=== PATIENT | female | born 1955 | race Caucasian/White ===

== ENCOUNTER → 2019-04-18 13:57 | Outpatient (CLI) | payer MEDICARE, SELFPAY ==
[2019-04-18 14:53] LABS: Hemoglobin A1C% w Est Avg Glu 6.7 % (4.0-6.0)
[2019-04-18 15:33] LABS: Cholesterol 174 mg/dL (140-199); HDL Cholesterol 66 mg/dL (40-60); LDL Cholesterol Calculated 80 mg/dL (<100); Triglycerides 140 mg/dL (35-150)
[2019-04-18 15:51] LABS: Free T4, Direct Thyroxine 1.36 ng/dL (0.78-2.19)
[2019-04-18 16:01] LABS: Creatinine Urine Random 79.1 mg/dL
[2019-04-18 16:05] LABS: Microalbumi Creatinin Ratio Ur 7.5 ug/mg CR (<30); Microalbumin Urine Random < 0.6 mg/dL (0-1.6)
== END ==
PROVIDERS: Visit Provider Student in an Organized Health Care Education/Training Program
DX: E03.9 Hypothyroidism, unspecified (principal); E11.9 Type 2 diabetes mellitus without complications; E78.2 Mixed hyperlipidemia
CPT/HCPCS: 36415; 80061; 82043; 82570; 83036; 84439; 84443

== ENCOUNTER → 2019-06-23 14:28 | Outpatient (CLI) | payer MEDICARE, SELFPAY ==
--- NOTE | 2019-06-23 14:29 | DI.MG.S_ITS ---
BILATERAL DIGITAL SCREENING MAMMOGRAM 3D/2D WITH CAD: 06/23/2019 CLINICAL: Routine screening. Comparison is made to exams dated: 07/19/2015 mammogram, 02/10/2014 mammogram - [facility], 11/15/2012 mammogram, and 11/15/2011 mammogram - [facility]. There are scattered fibroglandular elements in both breasts. Current study was also evaluated with a Computer Aided Detection (CAD) system. No significant masses, calcifications, or other findings are seen in either breast. There has been no significant interval change. IMPRESSION: NEGATIVE There is no mammographic evidence of malignancy. A 1 year screening mammogram is recommended. This exam was interpreted at Station ID: [id number]. NOTE: For mammograms, a report in lay terms will be sent to the patient. Approximately 15% of breast malignancies will not be visualized mammographically. In the management of a palpable breast mass, a negative mammogram must not discourage biopsy of a clinically suspicious lesion. Electronically Signed By: Shane [email or web address]/[email or web address]:06/23/2019 17:33:49 letter sent: Normal Exam ACR BI-RADS Category 1: Negative [id number]
== END ==
PROVIDERS: PCP Student in an Organized Health Care Education/Training Program; Visit Provider Student in an Organized Health Care Education/Training Program
DX: Z12.31 Encounter for screening mammogram for malignant neoplasm of breast (principal); Z13.820 Encounter for screening for osteoporosis; Z78.0 Asymptomatic menopausal state; E07.9 Disorder of thyroid, unspecified; E11.9 Type 2 diabetes mellitus without complications; Z91.89 Other specified personal risk factors, not elsewhere classified; Z87.891 Personal history of nicotine dependence
CPT/HCPCS: 77063; 77067; 77080

== ENCOUNTER → 2019-10-11 10:49 | Outpatient (CLI) | payer MEDICARE, SELFPAY ==
[2019-10-11 12:16] LABS: Hemoglobin A1C% w Est Avg Glu 7.3 % (4.0-6.0)
[2019-10-11 12:23] LABS: BUN Creatinine Ratio 28.8 (6-22); Blood Urea Nitrogen 21 mg/dL (7-17); Calcium 10.1 mg/dL (8.4-10.2); Carbon Dioxide 26 mmol/L (22-32); Chloride 105 mmol/L (98-107); Estimated Glomerular Filt Rate > 60.0 mL/min (>60); Glucose 149 mg/dL (80-110); HEMOLYSIS < 15 (0-50); Potassium 4.3 mmol/L (3.4-5.1); Sodium 139 mmol/L (137-145)
== END ==
PROVIDERS: PCP Student in an Organized Health Care Education/Training Program; Referring Provider Student in an Organized Health Care Education/Training Program; Visit Provider Student in an Organized Health Care Education/Training Program
DX: E11.9 Type 2 diabetes mellitus without complications (principal); I10 Essential (primary) hypertension
CPT/HCPCS: 36415; 80048; 83036

== ENCOUNTER → 2020-01-19 11:58 | Outpatient (CLI) | payer MEDICARE, SELFPAY ==
[2020-01-19 13:39] LABS: Hemoglobin A1C% w Est Avg Glu 6.7 % (4.0-6.0)
== END ==
PROVIDERS: PCP Student in an Organized Health Care Education/Training Program; Referring Provider Student in an Organized Health Care Education/Training Program; Visit Provider Student in an Organized Health Care Education/Training Program
DX: E11.9 Type 2 diabetes mellitus without complications (principal)
CPT/HCPCS: 36415; 83036

== ENCOUNTER → 2020-05-05 16:20 | Outpatient (CLI) | payer MEDICARE, SELFPAY ==
[2020-05-05 17:25] LABS: Hemoglobin A1C% w Est Avg Glu 7.3 % (4.0-6.0)
[2020-05-05 17:37] LABS: Creatinine Urine Random 119.9 mg/dL
[2020-05-05 17:42] LABS: Microalbumi Creatinin Ratio Ur 5.8 ug/mg CR (<30); Microalbumin Urine Random 0.7 mg/dL (0-1.6)
== END ==
PROVIDERS: PCP Student in an Organized Health Care Education/Training Program; Referring Provider Student in an Organized Health Care Education/Training Program; Visit Provider Student in an Organized Health Care Education/Training Program
DX: E11.9 Type 2 diabetes mellitus without complications (principal)
CPT/HCPCS: 36415; 82043; 82570; 83036

== ENCOUNTER → 2023-10-22 08:59 | Outpatient (CLI) | payer MEDICARE, SELFPAY ==
[2023-10-22 10:21] LABS: Hemoglobin A1C% w Est Avg Glu 5.8 % (4.0-6.0)
[2023-10-22 10:27] LABS: Add Manual Diff / Slide Review NO; Basophils Absolute Auto 0 /uL (0-100); Basophils Percent Auto 0.5 % (0-2); Eosinophils Absolute Auto 100 /uL (0-450); Eosinophils Percent Auto 1.3 % (2-4); Hematocrit 32.9 % (36-46); Hemoglobin 10.8 g/dL (12.0-16.0); Lymphocytes Absolute Auto 2400 /uL (1100-4500); Lymphocytes Percent Auto 27.3 % (25-40); Mean Corpuscular HGB Conc 32.8 % (30-36); Mean Corpuscular Hemoglobin 25.9 PG (26-34); Mean Corpuscular Volume 79.1 fL (80-100); Monocytes Absolute Auto 400 /uL (0-900); Monocytes Percent Auto 4.7 % (3-14); Neutrophils Absolute Auto 5800 /uL (1500-7000); Neutrophils Percent Auto 66.2 % (50-75); Platelet Count 323 X10^3/uL (150-400); Red Blood Cell Count 4.16 X10^6/uL (4.0-5.2); Red Cell Distribution Width 16.7 % (11.6-14.8); White Blood Cell Count 8.7 X10^3/uL (4.5-11.0)
[2023-10-22 10:44] LABS: Alanine Aminotransferase 19 IU/L (<35); Albumin 4.1 g/dL (3.5-5.0); Alkaline Phosphatase 74 U/L (38-126); Aspartate Aminotransferase 25 IU/L (14-36); BUN Creatinine Ratio 18.4 (6-22); Bilirubin Total 0.7 mg/dL (0.2-1.3); Blood Urea Nitrogen 14 mg/dL (7-17); Calcium 9.9 mg/dL (8.4-10.2); Carbon Dioxide 27 mmol/L (22-32); Chloride 105 mmol/L (98-107); Cholesterol 154 mg/dL (140-199); Estimated Glomerular Filt Rate > 60 mL/min (>60); Globulin 2.1 g/dL (1.7-4.1); Glucose 100 mg/dL (80-110); HDL Cholesterol 68 mg/dL (40-60); HEMOLYSIS < 15 (0-50); LDL Cholesterol Calculated 68 mg/dL (<100); Potassium 5.1 mmol/L (3.4-5.1); Sodium 137 mmol/L (137-145); Total Protein 6.2 g/dL (6.3-8.2); Triglycerides 88 mg/dL (35-150)
[2023-10-22 10:45] LABS: Creatinine Urine Random 277.39 mg/dL
[2023-10-22 10:46] LABS: HEMOLYSIS < 15 (0-50); Iron 42 ug/dL (37-170)
[2023-10-22 10:52] LABS: Microalbumin Urine Random 1.4 mg/dL (0-1.6)
[2023-10-22 10:57] LABS: Percent Iron Saturation 11 % (15-50); Total Iron Binding Capacity 373 ug/dL (265-497); Transferrin 285 mg/dL (206-381)
[2023-10-22 11:17] LABS: Ferritin 6 ng/mL (11-264)
[2023-10-22 11:18] LABS: TSH w/ Reflex to FT4 0.44 uIU/mL (0.47-4.68)
[2023-10-22 12:01] LABS: Free T4, Direct Thyroxine 1.29 ng/dL (0.78-2.19)
== END ==
PROVIDERS: PCP Student in an Organized Health Care Education/Training Program; Referring Provider Student in an Organized Health Care Education/Training Program; Visit Provider Student in an Organized Health Care Education/Training Program
DX: I10 Essential (primary) hypertension (principal); E11.9 Type 2 diabetes mellitus without complications; E03.9 Hypothyroidism, unspecified; E61.1 Iron deficiency; E11.69 Type 2 diabetes mellitus with other specified complication; E78.2 Mixed hyperlipidemia
CPT/HCPCS: 36415; 80053; 80061; 82043; 82570; 82728; 83036; 83540; 83550; 84439; 84443; 85025

== ENCOUNTER → 2024-01-15 10:46 | Outpatient (CLI) | payer MEDICARE, SELFPAY ==
[2024-01-15 11:52] LABS: Add Manual Diff / Slide Review NO; Basophils Absolute Auto 0 /uL (0-100); Basophils Percent Auto 0.5 % (0-2); Eosinophils Absolute Auto 100 /uL (0-450); Eosinophils Percent Auto 1.3 % (2-4); Hematocrit 33.6 % (36-46); Lymphocytes Absolute Auto 3200 /uL (1100-4500); Lymphocytes Percent Auto 34.6 % (25-40); Mean Corpuscular HGB Conc 32.7 % (30-36); Mean Corpuscular Hemoglobin 26.4 PG (26-34); Mean Corpuscular Volume 80.6 fL (80-100); Monocytes Absolute Auto 500 /uL (0-900); Monocytes Percent Auto 5.4 % (3-14); Neutrophils Absolute Auto 5400 /uL (1500-7000); Neutrophils Percent Auto 58.2 % (50-75); Platelet Count 313 X10^3/uL (150-400); Red Blood Cell Count 4.17 X10^6/uL (4.0-5.2); Red Cell Distribution Width 15.9 % (11.6-14.8); White Blood Cell Count 9.2 X10^3/uL (4.5-11.0)
[2024-01-15 12:13] LABS: HEMOLYSIS < 15 (0-50)
[2024-01-15 12:16] LABS: Iron 28 ug/dL (37-170)
[2024-01-15 12:45] LABS: TSH w/ Reflex to FT4 0.54 uIU/mL (0.47-4.68)
[2024-01-15 12:47] LABS: Ferritin 5 ng/mL (11-264)
[2024-01-15 13:07] LABS: Transferrin 309 mg/dL (206-381)
== END ==
PROVIDERS: PCP Student in an Organized Health Care Education/Training Program; Referring Provider Student in an Organized Health Care Education/Training Program; Visit Provider Student in an Organized Health Care Education/Training Program
DX: D64.9 Anemia, unspecified (principal); E03.9 Hypothyroidism, unspecified
CPT/HCPCS: 36415; 82728; 83540; 83550; 84443; 85025

== ENCOUNTER → 2024-02-14 10:47 | Outpatient (CLI) | payer MEDICARE, SELFPAY ==
[2024-02-14 11:36] LABS: Hemoglobin A1C% w Est Avg Glu 5.9 % (4.0-6.0)
== END ==
PROVIDERS: PCP Student in an Organized Health Care Education/Training Program; Referring Provider Student in an Organized Health Care Education/Training Program; Visit Provider Student in an Organized Health Care Education/Training Program
DX: E11.9 Type 2 diabetes mellitus without complications (principal)
CPT/HCPCS: 36415; 83036

== ENCOUNTER → 2024-05-12 09:35 | Outpatient (CLI) | payer MEDICARE, SELFPAY ==
[2024-05-12 10:31] LABS: Add Manual Diff / Slide Review NO; Basophils Absolute Auto 0 /uL (0-100); Basophils Percent Auto 0.4 % (0-2); Eosinophils Absolute Auto 100 /uL (0-450); Eosinophils Percent Auto 1.3 % (2-4); Hematocrit 41.6 % (36-46); Hemoglobin 13.8 g/dL (12.0-16.0); Lymphocytes Absolute Auto 2900 /uL (1100-4500); Lymphocytes Percent Auto 35.7 % (25-40); Mean Corpuscular HGB Conc 33.2 % (30-36); Mean Corpuscular Hemoglobin 29.8 PG (26-34); Mean Corpuscular Volume 89.7 fL (80-100); Monocytes Absolute Auto 500 /uL (0-900); Monocytes Percent Auto 5.5 % (3-14); Neutrophils Absolute Auto 4700 /uL (1500-7000); Neutrophils Percent Auto 57.1 % (50-75); Platelet Count 285 X10^3/uL (150-400); Red Blood Cell Count 4.64 X10^6/uL (4.0-5.2); Red Cell Distribution Width 17.8 % (11.6-14.8); White Blood Cell Count 8.2 X10^3/uL (4.5-11.0)
[2024-05-12 10:43] LABS: Hemoglobin A1C% w Est Avg Glu 5.9 % (4.0-6.0)
[2024-05-12 11:02] LABS: HEMOLYSIS < 15 (0-50); Iron 93 ug/dL (37-170)
[2024-05-12 11:07] LABS: Alanine Aminotransferase 26 IU/L (<35); Albumin 4.3 g/dL (3.5-5.0); Albumin Globulin Ratio 1.7 (1.0-2.8); Alkaline Phosphatase 76 U/L (38-126); Aspartate Aminotransferase 27 IU/L (14-36); BUN Creatinine Ratio 21.6 (6-22); Bilirubin Total 0.7 mg/dL (0.2-1.3); Blood Urea Nitrogen 19 mg/dL (7-17); Calcium 10.6 mg/dL (8.4-10.2); Carbon Dioxide 28 mmol/L (22-32); Chloride 103 mmol/L (98-107); Cholesterol 173 mg/dL (140-199); Estimated Glomerular Filt Rate > 60 mL/min (>60); Globulin 2.6 g/dL (1.7-4.1); Glucose 117 mg/dL (80-110); HDL Cholesterol 78 mg/dL (40-60); HEMOLYSIS < 15 (0-50); LDL Cholesterol Calculated 78 mg/dL (<100); Sodium 135 mmol/L (137-145); Total Protein 6.9 g/dL (6.3-8.2); Triglycerides 84 mg/dL (35-150)
[2024-05-12 11:12] LABS: Percent Iron Saturation 39 % (15-50); Total Iron Binding Capacity 240 ug/dL (265-497); Transferrin 229 mg/dL (206-381)
[2024-05-12 11:12] LABS: Creatinine Urine Random 192.96 mg/dL
[2024-05-12 11:18] LABS: Microalbumin Urine Random < 0.6 mg/dL (0-1.6)
[2024-05-12 11:19] LABS: Potassium 5.4 mmol/L (3.4-5.1)
[2024-05-12 11:41] LABS: Ferritin 185 ng/mL (11-264)
== END ==
LOC: LAB 09:36
PROVIDERS: PCP Student in an Organized Health Care Education/Training Program; Referring Provider Student in an Organized Health Care Education/Training Program; Visit Provider Student in an Organized Health Care Education/Training Program
DX: D64.9 Anemia, unspecified (principal); E11.69 Type 2 diabetes mellitus with other specified complication; I10 Essential (primary) hypertension; E78.2 Mixed hyperlipidemia
CPT/HCPCS: 36415; 80053; 80061; 82043; 82570; 82728; 83036; 83540; 83550; 85025

== ENCOUNTER → 2024-05-20 10:33 | Outpatient (CLI) | payer MEDICARE, SELFPAY ==
[2024-05-20 12:52] LABS: Alanine Aminotransferase 29 IU/L (<35); Albumin 4.3 g/dL (3.5-5.0); Alkaline Phosphatase 77 U/L (38-126); Aspartate Aminotransferase 32 IU/L (14-36); BUN Creatinine Ratio 22.1 (6-22); Bilirubin Total 0.6 mg/dL (0.2-1.3); Blood Urea Nitrogen 17 mg/dL (7-17); Calcium 10.5 mg/dL (8.4-10.2); Carbon Dioxide 28 mmol/L (22-32); Chloride 103 mmol/L (98-107); Estimated Glomerular Filt Rate > 60 mL/min (>60); Globulin 2.2 g/dL (1.7-4.1); Glucose 112 mg/dL (80-110); HEMOLYSIS < 15 (0-50); Potassium 5.4 mmol/L (3.4-5.1); Sodium 138 mmol/L (137-145); Total Protein 6.5 g/dL (6.3-8.2)
[2024-05-22 12:36] LABS: Calcium 10.3 mg/dL (8.7-10.3); Parathyroid Hormone, Intact 39 pg/mL (15-65)
== END ==
PROVIDERS: PCP Student in an Organized Health Care Education/Training Program; Referring Provider Student in an Organized Health Care Education/Training Program; Visit Provider Student in an Organized Health Care Education/Training Program
DX: E03.9 Hypothyroidism, unspecified (principal); E34.9 Endocrine disorder, unspecified; E87.5 Hyperkalemia; Z79.899 Other long term (current) drug therapy
CPT/HCPCS: 36415; 80053; 82310; 83970

== ENCOUNTER → 2024-07-03 10:12 | Outpatient (CLI) | payer MEDICARE, SELFPAY ==
--- NOTE | 2024-07-03 10:15 | DI.ECHO.S_ITS ---
[facility]+ [facility] : : [address] : : [place] : : [id number] : : Phone: [phone] Echocardiogram Report + + :Name: ALOK GIBBONS Study Date: 07/03/2024 Height: 63 in : :[facility] ReadingLocation: Weight: 185 lb : : Gender: Female BSA: 1.9 m2 : :: 1955 Age: 69 yrs BP: 127/81 mmHg: :Reason For Study: ESSENTIAL HYPERTENSION : :Ordering Physician: MAHAD, : :NEGRITO Performed By: Timi Villatoro : :Referring: NEGRITO TOBIN : + + Interpretation Summary The ejection fraction is estimated to be 50-55%. Diastolic parameters suggest probable normal left ventricular diastolic function and normal filling pressures. Right ventricular systolic function is borderline reduced. No significant valvular abnormalities. Pulmonary artery pressures cannot be estimated because of the lack of a measurable TR jet velocity but the IVC suggests a CVP of around 3 mmHg. Procedure: A two-dimensional transthoracic echocardiogram with color flow and Doppler was performed. The study quality was technically good. There is no prior echocardiogram noted for this patient. The patient was in normal sinus rhythm during the exam. Left Ventricle: The left ventricle is normal in size. Left ventricular wall thickness is mildly increased. There is no ventricular septal defect visualized. The ejection fraction is estimated to be 50-55%. There are no focal wall motion abnormalities. Diastolic parameters suggest probable normal left ventricular diastolic function and normal filling pressures. Right Ventricle: The right ventricle is normal size. Right ventricular systolic function is borderline reduced. Atria: The left atrial size is normal. Right atrial size is normal. There is no Doppler evidence for an interatrial shunt. Mitral Valve: The mitral valve leaflets appear normal. There is no evidence of stenosis, fluttering, or prolapse. There is moderate mitral annular calcification. There is no mitral regurgitation noted. Aortic Valve: The aortic valve is trileaflet. The aortic valve is slightly calcified. The aortic valve opens well. There is no aortic valve stenosis. There is trace aortic regurgitation. Tricuspid Valve: The tricuspid valve is normal in structure and function. There is trace tricuspid regurgitation. Pulmonary artery pressures cannot be estimated because of the lack of a measurable TR jet velocity but the IVC suggests a CVP of around 3 mmHg. Pulmonic Valve: The pulmonic valve leaflets are thin and pliable; valve motion is normal. There is trace pulmonic regurgitation. Great Vessels: The aortic root is normal size. The dimensions of the ascending aorta are normal. The pulmonary artery is normal size. The IVC is of normal diameter and collapses greater than 50% with a sniff. This suggests a low right atrial pressure of 3 mm Hg. Pericardium/ Pleura There is no pericardial effusion. There is no pleural effusion. MMode/2D Measurements & Calculations LVIDd: 4.1 cm LVOT diam: 2.2 cm LVIDs: 2.7 cm Ao root diam: 3.2 cm FS: 35.0 % asc Aorta Diam: 3.4 cm EPSS: 0.89 cm Ao Arch Diam (Prox Trans): 1.9 cm IVSd: 1.3 cm LVPWd: 1.0 cm LV sy. diameter/BSA (cm/m^2): 2.2 LV sys. diameter/BSA (cm/m^2): 1.4 LA A2 area: 15.0 cm2 RA long axis: 4.0 cm LA A4 area: 19.0 cm2 RA area: 11.2 cm2 LA length (vol): 5.4 cm RA vol: 26.3 ml LA vol: 45.1 ml RA : 14.1 ml/m2 LA vol index: 24.1 ml/m2 IVC diam: 1.4 cm RVD1 (basal): 3.4 cm RVD2 (mid): 2.6 cm TAPSE: 2.3 cm Doppler Measurements & Calculations Ao V2 max: 123.8 cm/sec LVOT Max Han: 76.8 cm/sec Ao V2 mean: 87.0 cm/sec LV V1 max P.4 mmHg Ao max P.1 mmHg LV V1 VTI: 16.9 cm Ao mean P.4 mmHg MOE(I,D): 2.4 cm2 Ao V2 VTI: 26.8 cm MOE(V,D): 2.3 cm2 sev ratio: 0.63 MOE indexed to BSA (cm^2/m^2): 1.3 MV E max han: 57.1 cm/sec TR max han: 214.2 cm/sec MV A max han: 101.6 cm/sec TR max P.3 mmHg MV E/A: 0.56 PA V2 max: 69.5 cm/sec Med Peak E' Han: 4.2 cm/sec PA V2 mean: 47.6 cm/sec E/E' med: 13.6 PA mean P.0 mmHg Lat Peak E' Han: 6.9 cm/sec PA pr(Accel): 24.2 mmHg E/E' lat: 8.3 E/e' average: 11.0 MV dec time: 0.25 sec SV(OT): 63.8 ml Reading Physician:05:42 PM
== END ==
PROVIDERS: PCP Student in an Organized Health Care Education/Training Program; Referring Provider Student in an Organized Health Care Education/Training Program; Visit Provider Student in an Organized Health Care Education/Training Program
DX: I10 Essential (primary) hypertension (principal); I34.81 Nonrheumatic mitral (valve) annulus calcification
CPT/HCPCS: 93306

== ENCOUNTER 2024-07-31 14:05 | Day surgery (SDC) | payer MEDICARE, SELFPAY ==
[2024-07-31 14:30] VITALS: BP 149/72; PULSE 70; RESP 16; TEMP 36.4; O2SAT 70
--- NOTE | 2024-07-31 14:40 | PM.HP.IH.1 ---
History of Present Illness History of Present Illness Date Patient Seen: 07/31/24 Time Patient Seen: 14:40 Chief complaint: [facility] [place] Narrative: Crystal is a 69-year-old woman with a anemia. See the office note from June 30 for details. COUNTS INCLUDE 234 BEDS AT THE [facility] Medical History Acne (~1966) Kidney stones (~2009) GERD (gastroesophageal reflux disease) Type 2 diabetes mellitus (~2008) Morbid obesity Shoulder pain Chicken pox (~1956) Surgical History Anesthesia Empyema (~2008) History of thyroidectomy (~1973) Family History Father History of heart disease Brother History of heart disease Hyperlipidemia Hypertension Grandfather Brain aneurysm Grandmother Lung disease Grandfather History of heart disease Mother Cancer Social History Smoking Status: Former smoker (Quit 20 years ago. ) Tobacco: How many years used: 25 second hand exposure: No alcohol intake: current (Often have a glass of wine or whiskey at night) substance use type: does not use Meds Home Medications and Allergies Home Medications Medication Instructions Recorded Confirmed Type aspirin 81 mg tablet,delayed 81 mg PO DAILY 04/18/19 07/31/24 History release (Adult Low Dose Aspirin) omeprazole 20 mg capsule,delayed 20 mg PO .Every other day 04/18/19 07/31/24 History release 500mg Calcium citrate magnesium 02/05/20 06/30/24 History zinc D3 levothyroxine 112 mcg tablet 100 mcg PO DAILY 10/19/23 07/31/24 History metformin 500 mg tablet 1,000 mg PO BID 10/19/23 07/31/24 History atorvastatin 10 mg tablet 10 mg PO DAILY #90 tabs 04/21/24 07/31/24 Rx venlafaxine 37.5 mg 37.5 mg PO DAILY #30 caps 05/15/24 07/31/24 Rx capsule,extended release 24 hr ferrous sulfate 324 mg (65 mg 324 mg PO DAILY #90 tabs 06/16/24 07/31/24 Rx iron) tablet,delayed release tirzepatide 5 mg/0.5 mL 5 mg (0.5 mL) SUBCUT QWEEK #2 mL 06/16/24 07/30/24 Rx subcutaneous pen injector lisinopril 10 mg tablet 10 mg PO DAILY #30 tabs 06/25/24 07/31/24 Rx Allergies Allergy/AdvReac Type Severity Reaction Status Date / Time No Known Drug Allergies Allergy Verified 06/30/24 10:17 Exam Const General: healthy appearing Assessment & Plan Assessment and plan (1) Anemia: Qualifiers: Anemia type: iron deficiency Iron deficiency anemia type: unspecified iron deficiency Qualified Code(s): D50.9 - Iron deficiency anemia, unspecified Status: Acute Plan EGD and colonoscopy Time-Based Coding :: [TOTAL MINUTES] spent with patient and on the chart (including review of chart, obtaining history, exam, reviewing outside data, placing orders, documenting exam and treatment plan, and counseling patient) on [DATE]. [employer] Document charge(s): No
[2024-07-31] MEDS: LACTATED RINGERS 1,000 ML 42 ML IV (14:49)
[2024-07-31 15:20] VITALS: BP 123/47; PULSE 68; RESP 16; TEMP 36.3; O2SAT 95
[2024-07-31 15:25] VITALS: BP 109/61; PULSE 64; RESP 16; O2SAT 96
--- NOTE | 2024-07-31 15:27 | PM.OP.EC ---
Operative Date/Time/Diagnoses Date of procedure: 07/31/24 Time of procedure: 15:27 Pre-op diagnosis: Anemia Post-op diagnosis: same Procedure & Clinicians Study performed: EGD and colonoscopy Same procedure as scheduled: Yes Surgeon: Emilio Toribio Procedure Notes Procedure in detail: Surgeon: Emilio Toribio MD Anesthesia: Loni Tomlin DO Procedure in detail: A timeout was performed. A bite blocked was placed and monitors were attached to the patient. The patient was positioned in the left lateral decubitus position. Sedation was administered. Once the patient was sedated the endoscope was inserted through the bite block and passed through the esophagus and stomach and into the duodenum. There were no abnormalities in the duodenum. We then withdrew the scope into the stomach. There were some rather large fundic gland polyps along the greater curvature of the proximal stomach. There was no active bleeding. The endoscope was straightned and withdrawn into the esophagus. No other abnormalities were seen. EGD findings: Some rather large fundic gland polyps in the proximal stomach Next we repositioned the patient for a colonoscopy. A digital rectal exam was performed and was normal. The colonoscope was inserted and advanced to the cecum. The appendiceal orifice was identified and photographed. The scope was slowly withdrawn over greater than 6 minutes. No abnormalities were found. The scope was retroflexed in the rectum and no abnormalities were seen. Colonoscopy findings: Normal colon Total procedural EBL: 0 Scope withdrawal time: 8 minutes Sedation minutes: 24 minutes Post-procedure Disposition: PACU
[2024-07-31 15:30] VITALS: BP 125/70; PULSE 63; RESP 15; O2SAT 96
[2024-07-31 15:36] VITALS: BP 118/60; PULSE 67; RESP 15; O2SAT 97
[2024-07-31 15:51] VITALS: BP 118/62; PULSE 65; RESP 16; O2SAT 97
== END 2024-07-31 15:59 | disposition home or self-care (01) ==
PROVIDERS: PCP Student in an Organized Health Care Education/Training Program; Referring Provider Surgery; Visit Provider Surgery
PROC: 0DJ08ZZ Inspection of Upper Intestinal Tract, Via Natural or Artificial Opening Endoscopic (ICD-10-PCS; CPT 43235; principal; 2024-07-31 15:15)
PROC: 0DJD8ZZ Inspection of Lower Intestinal Tract, Via Natural or Artificial Opening Endoscopic (ICD-10-PCS; CPT 45378; 2024-07-31 15:15)
DX: D64.9 Anemia, unspecified (principal); K31.7 Polyp of stomach and duodenum; Z87.891 Personal history of nicotine dependence
CPT/HCPCS: 43235; 45378; 82962; J2704

== ENCOUNTER → 2024-12-11 09:24 | Outpatient (CLI) | payer MEDICARE, SELFPAY ==
[2024-12-11 09:43] LABS: Add Manual Diff / Slide Review NO; Hematocrit 40.5 % (36-46); Hemoglobin 14.2 g/dL (12.0-16.0); Lymphocytes Absolute Auto 2700 /uL (1100-4500); Mean Corpuscular HGB Conc 35.0 % (30-36); Mean Corpuscular Hemoglobin 32.0 PG (26-34); Mean Corpuscular Volume 91.2 fL (80-100); Platelet Count 279 X10^3/uL (150-400)
[2024-12-11 10:04] LABS: Hemoglobin A1C% w Est Avg Glu 5.5 % (4.0-6.0)
[2024-12-11 10:07] LABS: HEMOLYSIS < 15 (0-50); Iron 106 ug/dL (37-170)
[2024-12-11 10:11] LABS: Alanine Aminotransferase 21 IU/L (<35); Albumin 4.3 g/dL (3.5-5.0); Albumin Globulin Ratio 1.8 (1.0-2.8); Alkaline Phosphatase 68 U/L (38-126); Blood Urea Nitrogen 14 mg/dL (7-17); Calcium 10.2 mg/dL (8.4-10.2); Carbon Dioxide 24 mmol/L (22-32); Chloride 103 mmol/L (98-107); Estimated Glomerular Filt Rate > 60 mL/min (>60); Globulin 2.4 g/dL (1.7-4.1); Glucose 97 mg/dL (70-99); HEMOLYSIS < 15 (0-50); Potassium 4.4 mmol/L (3.4-5.1); Sodium 135 mmol/L (137-145); Total Protein 6.7 g/dL (6.3-8.2)
[2024-12-11 10:21] LABS: Percent Iron Saturation 41 % (15-50); Total Iron Binding Capacity 258 ug/dL (265-497); Transferrin 227 mg/dL (206-381)
[2024-12-11 10:23] LABS: Microalbumi Creatinin Ratio Ur 6.0 ug/mg CR (<30)
[2024-12-11 10:41] LABS: Ferritin 123 ng/mL (11-264)
== END ==
PROVIDERS: PCP Student in an Organized Health Care Education/Training Program; Referring Provider Student in an Organized Health Care Education/Training Program; Visit Provider Student in an Organized Health Care Education/Training Program
DX: E61.1 Iron deficiency (principal); E11.65 Type 2 diabetes mellitus with hyperglycemia; I10 Essential (primary) hypertension
CPT/HCPCS: 36415; 80053; 82043; 82570; 82728; 83036; 83540; 83550; 85025

== ENCOUNTER → 2024-12-24 15:11 | Outpatient (CLI) | payer MEDICARE, SELFPAY ==
--- NOTE | 2024-12-24 15:12 | DI.MG.S_ITS ---
MM screening mammo BI: 12/24/2024. BI-RADS: 1 CLINICAL: 69-year old female for bilateral screening mammogram. Tyrer-Cuzick lifetime risk of 3.1%. PRIOR EXAMS 08/14/2023, 03/28/2022, 11/17/2020, 06/23/2019, MAMMOGRAPHY TECHNIQUE: 2D and 3D (tomosynthesis) digital mammographic views obtained, with additional images as needed for full coverage. Current study was also evaluated with a Computer Aided Detection (CAD) system. DENSITY B. There are scattered areas of fibroglandular density. MAMMOGRAPHY FINDINGS Bilateral: No suspicious mass, asymmetry, microcalcification, or other abnormality seen. IMPRESSION: * No evidence of malignancy. RECOMMENDATIONS Bilateral * Annual screening mammography. OVERALL ASSESSMENT CATEGORY BI-RADS-1: Negative. The [employer] recommends annual screening mammography beginning at age 40 for women with average risk of breast cancer. ELECTRONICALLY SIGNED: Jackelin Hackett M.D. on 12/25/2024 at 05:03:29 PM PT Interpreting Station ID: [id number]
== END ==
LOC: MAMMO 15:11
PROVIDERS: PCP Student in an Organized Health Care Education/Training Program; Referring Provider Student in an Organized Health Care Education/Training Program; Visit Provider Student in an Organized Health Care Education/Training Program
DX: Z12.31 Encounter for screening mammogram for malignant neoplasm of breast (principal)
CPT/HCPCS: 77063; 77067

== ENCOUNTER → 2025-03-24 11:06 | Outpatient (CLI) | payer MEDICARE, SELFPAY ==
[2025-03-24 12:58] LABS: Hemoglobin A1C% w Est Avg Glu 5.4 % (4.0-6.0)
[2025-03-24 13:44] LABS: Folate 12.9 ng/mL (2.76-20.0); Vitamin B12 603 pg/mL (239-931)
[2025-03-25 15:09] LABS: SS A Ro Sjogrens Antibody < 0.2 AI (0.0-0.9); SS B La Sjogrens Antibody < 0.2 AI (0.0-0.9)
== END ==
PROVIDERS: PCP Student in an Organized Health Care Education/Training Program; Referring Provider Student in an Organized Health Care Education/Training Program; Visit Provider Student in an Organized Health Care Education/Training Program
DX: E11.65 Type 2 diabetes mellitus with hyperglycemia (principal); R43.8 Other disturbances of smell and taste; E61.1 Iron deficiency; E11.69 Type 2 diabetes mellitus with other specified complication; D50.9 Iron deficiency anemia, unspecified; E78.2 Mixed hyperlipidemia; I10 Essential (primary) hypertension
CPT/HCPCS: 36415; 82607; 82746; 83036; 86235